=== PATIENT | male | born 1950 | race Caucasian/White ===

== ENCOUNTER 2017-09-12 11:36 | Emergency (ER) | payer OTHER ==
[2017-09-12 11:50] VITALS: TEMP 97.5; O2SAT 93
[2017-09-12] MEDS ORDERED: DEXAMETHASONE 4 MG/ML VIAL IVP ONE (13:05)
[2017-09-12] MEDS ORDERED: DIAZEPAM 5 MG TAB PO ONE (13:05)
--- NOTE | 2017-09-12 13:10 | EDPHY ---
H & P Stated Complaint: lower back pain, unable to walk due to pain Time Seen by Provider: 09/12/17 12:52 HPI/ROS: CHIEF COMPLAINT: Low back pain HISTORY OF PRESENT ILLNESS: The patient is a 67-year-old man who states that he was walking around the track with a friend on August 15 and developed a low back pain radiating to both flank regions and down his legs. He went to [facility] on the and had an x-ray done and was diagnosed with degenerative disc disease. He followed up with a chiropractor twice who after reviewing the images told him they could not help him and that he needed to go to the ER to be have Neurosurgery consulted and have emergency surgery. He has not had any imaging beyond the plain films of his lower back. He has taken Percocet and Flexeril without relief but states that Ativan does help him remain calm. He states that he is pent up in his house and cannot walk. He states that a couple of times his fall and could not get up. He has not been incontinent. He states that his left foot is going numb. No fevers. No trauma. REVIEW OF SYSTEMS: Constitutional: denies: chills, fever, recent illness, recent injury EENTM: denies: blurred vision, double vision, nose congestion Respiratory: denies: cough, shortness of breath Cardiac: denies: chest pain, irregular heart rate, lightheadedness, palpitations Gastrointestinal/Abdominal: denies: abdominal pain, diarrhea, nausea, vomiting, blood streaked stools Genitourinary: denies: dysuria, frequency, hematuria, pain Musculoskeletal: denies: joint pain, muscle pain Skin: denies: lesions, rash, jaundice, bruising Neurological: denies: headache, numbness, paresthesia, tingling, dizziness, weakness Hematologic/Lymphatic: denies: blood clots, easy bleeding, easy bruising Immunologic/allergic: denies: HIV/AIDS, transplant EXAM: GENERAL: Well-appearing, well-nourished and in no acute distress. HEAD: Atraumatic, normocephalic. EYES: Pupils equal round and reactive to light, extraocular movements intact, sclera anicteric, conjunctiva are normal. ENT: TMs normal, nares patent, oropharynx clear without exudates. Moist mucous membranes. NECK: Normal range of motion, supple without lymphadenopathy or JVD. LUNGS: Breath sounds clear to auscultation bilaterally and equal. No wheezes rales or rhonchi. HEART: Regular rate and rhythm without murmurs, rubs or gallops. ABDOMEN: Soft, nontender, normoactive bowel sounds. No guarding, no rebound. No masses appreciated. BACK: No lumbar tenderness or deformities. Pain in paraspinous muscles bilaterally lumbar region, pain radiating down both legs worse on the left. Describe some numbness in the left. Normal range of motion. EXTREMITIES: Normal range of motion, no pitting or edema. No clubbing or cyanosis. NEUROLOGICAL: Cranial nerves II through XII grossly intact. Normal speech, unwilling to ambulate states that he will fall down when his left leg collapses. 5/5 strength in the bed, normal movement in all extremities, normal sensation PSYCH: Normal mood, normal affect. SKIN: Warm, dry, normal turgor, no visible rashes or lesions. Source: Patient Exam Limitations: No limitations - Personal History Current Tetanus Diphtheria and Acellular Pertussis (TDAP): Yes - Medical/Surgical History Hx Asthma: No Hx Chronic Respiratory Disease: No Hx Diabetes: Yes Hx Cardiac Disease: Yes Hx Renal Disease: No Hx Cirrhosis: No Hx Alcoholism: No Hx HIV/AIDS: No Hx Splenectomy or Spleen Trauma: No Other PMH: Diabetes, CAD, HTN, orthopedic surgeries - Family History Significant Family History: No pertinent family hx - Social History Smoking Status: Never smoked Alcohol Use: Sober Drug Use: None Constitutional: Initial Vital Signs Temperature (C) 36.4 C 09/12/17 11:46 Heart Rate 105 H 09/12/17 11:46 Respiratory Rate 16 09/12/17 11:46 O2 Sat (%) 93 09/12/17 11:46 O2 Delivery Mode Room Air Allergies/Adverse Reactions: No Known Allergies Allergy (Unverified 09/12/17 11:46) Home Medications: Medication Instructions Recorded Gabapentin [Neurontin 300 MG (*)] 300 mg PO TID #30 cap 09/12/17 LORazepam [Ativan 1 mg (RX)] 1 mg PO Q6-8PRN PRN #10 tab 09/12/17 Medical Decision Making - Diagnostics Imaging Results: Imaging Impressions Lumbar Spine MRI 09/12/17 13:06 Impression: 1. Severe acquired central canal stenosis at L2-L3, with associated marked crowding of the cauda equina and tethering. A small periarticular ganglion is present posteriorly at this level contributing to acquired central canal stenosis. Moderate bilateral neural foraminal stenosis and right far lateral recess stenosis is present additionally. 2. Moderate acquired central canal stenosis at L3-L4, associated with bilateral neural foraminal narrowing. Results called to Dr. Quinn Stover at 2:15 p.m.. ED Course/Re-evaluation: 2:15 p.m. I discussed the case with Dr. Mckoy from Neurosurgery. He will come to evaluate the patient. I spoke with the patient. His last meal was last night. He does not take any blood thinners other than naproxen. He does not take aspirin despite his cardiac history. 3:00 p.m. the patient has been treated with steroids. He is comfortable. We are awaiting neurosurgery consultation. 3:40 p.m. the patient is not yet been evaluated by Neurosurgery. I discussed the case again with Dr. Taylor who said Dr. Rodarte is here in the hospital to evaluate him. 3:[address] Rodarte is here and evaluating the patient. He has recommended discharge with gabapentin and follow-up in their office this week also recommended referral for PT-OT. Patient understands and agreeable with this plan. Family is with him and will take him home. Differential Diagnosis: Partial list of the Differential diagnosis considered include but were not limited to; cauda equina, sciatica, fracture and although unlikely based on the history and physical exam, I also considered infection, muscle strain . - Data Points Laboratory Results: Laboratory Results 09/12/17 13:30 09/12/17 13:30 09/12/17 09/12/17 09/12/17 15:00 13:30 13:30 WBC RBC Hgb Hct MCV MCH MCHC RDW Plt Count MPV Neut % (Auto) Lymph % (Auto) [place] % (Auto) Eos % (Auto) Baso % (Auto) Nucleat RBC Rel Count Absolute Neuts (auto) Absolute Lymphs (auto) Absolute Monos (auto) Absolute Eos (auto) Absolute Basos (auto) Absolute Nucleated RBC Immature Gran % Immature Gran # PT 14.6 SEC SEC (12.0-15.0) INR 1.15 (0.83-1.16) APTT 30.1 SEC SEC (23.0-38.0) Sodium 136 mEq/L mEq/L (134-144) Potassium 4.3 mEq/L mEq/L (3.5-5.2) Chloride 98 mEq/L mEq/L (97-110) Carbon Dioxide 26 mEq/l mEq/l (22-31) Anion Gap 12 mEq/L mEq/L (8-16) BUN 21 mg/dL mg/dL (7-23) Creatinine 0.8 mg/dL mg/dL (0.7-1.3) Estimated GFR > 60 Glucose 140 mg/dL H mg/dL (70-100) Calcium 9.8 mg/dL mg/dL (8.5-10.4) Patient ABO/Rh A NEGATIVE Antibody Screen NEGATIVE 09/12/17 13:30 WBC 6.49 10^3/uL 10^3/uL (3.80-9.50) RBC 4.71 10^6/uL 10^6/uL (4.40-6.38) Hgb 15.7 g/dL g/dL (13.7-17.5) Hct 43.2 % % (40.0-51.0) MCV 91.7 fL fL (81.5-99.8) MCH 33.3 pg pg (27.9-34.1) MCHC 36.3 g/dL g/dL (32.4-36.7) RDW 12.2 % % (11.5-15.2) Plt Count 206 10^3/uL 10^3/uL (150-400) MPV 10.5 fL fL (8.7-11.7) Neut % (Auto) 44.5 % % (39.3-74.2) Lymph % (Auto) 44.7 % % (15.0-45.0) [place] % (Auto) 8.3 % % (4.5-13.0) Eos % (Auto) 1.4 % % (0.6-7.6) Baso % (Auto) 0.9 % % (0.3-1.7) Nucleat RBC Rel Count 0.0 % % (0.0-0.2) Absolute Neuts (auto) 2.89 10^3/uL 10^3/uL (1.70-6.50) Absolute Lymphs (auto) 2.90 10^3/uL 10^3/uL (1.00-3.00) Absolute Monos (auto) 0.54 10^3/uL 10^3/uL (0.30-0.80) Absolute Eos (auto) 0.09 10^3/uL 10^3/uL (0.03-0.40) Absolute Basos (auto) 0.06 10^3/uL 10^3/uL (0.02-0.10) Absolute Nucleated RBC 0.00 10^3/uL 10^3/uL (0-0.01) Immature Gran % 0.2 % % (0.0-1.1) Immature Gran # 0.01 10^3/uL 10^3/uL (0.00-0.10) PT INR APTT Sodium Potassium Chloride Carbon Dioxide Anion Gap BUN Creatinine Estimated GFR Glucose Calcium Patient ABO/Rh Antibody Screen Medications Given: Discontinued Medications Dexamethasone (Decadron Injection) 10 mg IVP EDNOW ONE Stop: 09/12/17 13:06 Last Admin: 09/12/17 13:27 Dose: 10 mg Diazepam (Valium) 5 mg PO EDNOW ONE Stop: 09/12/17 13:06 Last Admin: 09/12/17 13:28 Dose: Not Given Diazepam (Valium Injection) 5 mg IVP EDNOW ONE Stop: 09/12/17 13:23 Last Admin: 09/12/17 13:28 Dose: 5 mg Gabapentin (Neurontin) 300 mg PO EDNOW ONE Stop: 09/12/17 16:01 Last Admin: 09/12/17 16:25 Dose: 300 mg Lorazepam (Ativan Injection) 1 mg IVP EDNOW ONE Stop: 09/12/17 14:52 Last Admin: 09/12/17 15:02 Dose: 1 mg Departure - Departure Disposition: Home, Routine, Self-Care Clinical Impression: Low back pain Qualifiers: Chronicity: acute Back pain laterality: bilateral Sciatica presence: with sciatica Sciatica laterality: bilateral sciatica Qualified Code(s): M54.42 - Lumbago with sciatica, left side; M54.41 - Lumbago with sciatica, right side; M54.41 - Lumbago with sciatica, right side Condition: Fair Instructions: Acute Low Back Pain (ED) Additional Instructions: Follow-up with Dr. Rodarte as recommended. Go to physical therapy for treatment. Referrals: GINO DAVIDSON [Other] - As per Instructions Joshua Rodarte MD [Medical Doctor] - As per Instructions Prescriptions: Gabapentin [Neurontin 300 MG (*)] 300 mg PO TID #30 cap LORazepam [Ativan 1 mg (RX)] 1 mg PO Q6-8PRN PRN #10 tab PRN Reason: *Anxiety/Agitation/Insomnia
[2017-09-12] MEDS ORDERED: DIAZEPAM 10 MG/2 ML SYR IVP ONE (13:22)
[2017-09-12 14:36] VITALS: RESP 18
[2017-09-12 14:38] LABS: % IMMATURE GRANULYOCYTES 0.2 % (0.0-1.1); ABSOLUTE IMMATURE GRANULOCYTES 0.01 10^3/uL (0.00-0.10); ADD DIFF? NO; ADD MORPH? NO; ADD SCAN? NO; ATYPICAL LYMPHOCYTE FLAG 0 (0-99); FRAGMENT RBC FLAG 0 (0-99); HEMATOCRIT 43.2 % (40.0-51.0); HEMOGLOBIN 15.7 g/dL (13.7-17.5); LEFT SHIFT FLG 0 (0-99); LIPEMIA HEMOLYSIS FLAG 90 (0-99); MEAN CELL HEMOGLOBIN 33.3 pg (27.9-34.1); MEAN CELL HEMOGLOBIN CONCENTR. 36.3 g/dL (32.4-36.7); MEAN CELL VOLUME 91.7 fL (81.5-99.8); MEAN PLATELET VOLUME 10.5 fL (8.7-11.7); PLATELET CLUMPS FLAG 0 (0-99); PLATELET COUNT 206 10^3/uL (150-400); RED BLOOD CELL COUNT 4.71 10^6/uL (4.40-6.38); RED CELL DISTRIBUTION WIDTH 12.2 % (11.5-15.2)
[2017-09-12 14:42] LABS: APTT 30.1 SEC (23.0-38.0); INR 1.15 (0.83-1.16); PROTIME(PATIENT) 14.6 SEC (12.0-15.0)
[2017-09-12 14:47] LABS: CALCIUM 9.8 mg/dL (8.5-10.4); CARBON DIOXIDE 26 mEq/l (22-31); CHLORIDE 98 mEq/L (97-110); CREATININE 0.8 mg/dL (0.7-1.3); GLOMERULAR FILTRATION RATE > 60; GLUCOSE 140 mg/dL (70-100); SODIUM 136 mEq/L (134-144)
[2017-09-12] MEDS ORDERED: LORazepam 2 MG/ML INJ IVP ONE (14:51)
[2017-09-12 14:54] LABS: ANION GAP 12 mEq/L (8-16); POTASSIUM 4.3 mEq/L (3.5-5.2)
[2017-09-12] MEDS ORDERED: GABAPENTIN 300 MG CAP PO ONE (16:00)
[2017-09-12 16:46] VITALS: BP 138/80; PULSE 80
--- NOTE | 2017-09-12 22:45 | GCON ---
[f rep st] CONSULTATION NEUROSURGERY CONSULTATION DATE OF CONSULTATION: 09/12/2017 The patient was seen and evaluated at approximately 3:30 p.m. in the [facility]. HISTORY OF PRESENT ILLNESS: The patient is a 67-year-old man who has developed some low back and leg pain since approximately August 15 when he was walking with a friend. He was seen in the [facility] where some x-rays were done which showed some degenerative disk disease. He has seen a chiropractor several times but has not been helped by this. He was told that he needed to valderrama ve a neurosurgery consult and was given the name of our office. Due to his continued back pain, he t hen presented to the emergency department today and was apparently told that he needed to have emerge ncy surgery. He basically has severe aching and burning pain in the buttocks and thighs when he walk s. If he walks moderate to longer distances he has to sit down and rest to get this pain to go away. He has been taking Percocet and Flexeril and has not gotten much relief from that. He has not had any incontinence and essentially no significant weakness. He had an MRI in the emergency department today which shows severe central canal stenosis at L2-3, and slightly less at L3-4. He also appears to have a small synovial cyst which is contributing to his stenosis at L2-3. REVIEW OF SYSTEMS: A 10-point review of systems is negative other than described in HPI. PAST MEDICAL HISTORY: 1. Cardiac disease. 2. Diabetes. 3. Hypertension. 4. Multiple orthopedic surgeries of both knees and multiple other joints. FAMILY HISTORY: Reviewed with the patient but no pertinent family history to this admission. SOCIAL HISTORY: The patient is a lifelong nonsmoker. He denies any alcohol or other drug use. ALLERGIES: No known drug allergies. MEDICATIONS: 1. Ativan. 2. Percocet. 3. Flexeril. PHYSICAL EXAM: Currently, he is afebrile with normal stable vital signs. He is awake, alert, and or iented x3. His cranial nerves 2-12 are grossly normal. Speech is clear and fluent. He has full 5/5 strength at the deltoids, biceps, triceps, wrist flexion, extension, and help desk specialist bilaterally. In the l ower extremities, he has full 5/5 strength at the hip flexors and extensors, knee flexors, extensors and plantar and dorsiflexion. Although his plantar and dorsiflexion on the right is limited due to f usion of his right ankle. His sensation appears to be normal. Deep tendon reflexes appear to be nor mal. He does not have any abnormal or pathologic reflexes. IMAGING REVIEW: He has moderate to severe degenerative disk disease at multiple levels. He does hav e severe stenosis at L2-3 and L3-4, with a concomitant synovial cyst which was contributing to his st enosis. His alignment appears to be good. He does have a small amount of fluid in the facet joints at L2-3, and L3-4. LABORATORY REVIEW: The white count is 6.49, hemoglobin 15.7, hematocrit is 43.2, platelet count is 2 06,000. His PT is 14.6, INR is 1.1, PTT is 30.1. Sodium is 136, potassium 4.3, BUN is 21, creatinin e 0.8, glucose is 140. ASSESSMENT AND PLAN: The patient is a 67-year-old man, who presents with neurogenic claudication and lumbar stenosis at L2-3 and L3-4. Overall, he is currently doing reasonably well. He does not have any red flag signs of incontinence, saddle anesthesia or increasing weakness. I discussed the optio ns with him and suggested that a course of some conservative therapy would probably be the best place to start. The ER physicians are going to give him a prescription for gabapentin 300 mg 3 times a da y and then get him started in outpatient physical therapy. I will plan to follow him up in the very near future in the clinic to check his progress. If he is not making significant progress at that ti me, we certainly could proceed to laminectomy L2-4. If he is making some progress but is not suffici ent, another option would be to try an intralaminar epidural steroid injection. I told him to give u s a call if he is not seeing some improvement in the meantime, but otherwise we will plan to see him back in clinic in a couple of weeks. The patient agrees with this plan and was happy with our conver sation. Thanks for the kind consultation. /[id number]/MODL
== END 2017-09-12 17:03 | disposition home or self-care (01) ==
DX: M54.41 Lumbago with sciatica, right side (principal); M54.42 Lumbago with sciatica, left side; I10 Essential (primary) hypertension; I25.10 Atherosclerotic heart disease of native coronary artery without angina pectoris; E11.9 Type 2 diabetes mellitus without complications; R79.1 Abnormal coagulation profile
CPT/HCPCS: 72148; 96374; 96375; 99285; J1100; J2060